=== PATIENT | female | born 1975 | race Two or more races ===

== ENCOUNTER 2022-02-26 00:39 | Inpatient (IN) | payer OTHER ==
[~2022-02-26] VITALS: Ht 157.5 cm; Wt 67.6 kg
--- NOTE | 2022-02-26 07:30 | NUR ---
RN OPENING NOTES RECEIVED PATIENT VIA [facility] AT 0900 AM WITH [address] [facility]. PATIENT IS ALERT AND ORIENTED TIMES 4. NO PAIN NOTED NO DISTRESS NOTED. NO SOB NOTED. ALL THE BELONGINGS ACCOUNTED AND SIGNED FOR. RIGHT LOWER EXTREMITY CELLULITIS NOTED. PICTURE TAKEN , IN THE CHART. ABLE TO AMBULATE. IV ACCESS AT RIGHT AC PAULA 20. AND DAUGHTER AT BED SIDE. ALL NEEDS ATTENDED. ALL SAFETY IN PLACE. BED LOCKED IN THE LOWEST POSITION. CALL LIGHT AND TABLE IN EASY REACH. WILL CONTINUE TO MONITOR.
[2022-02-26 09:10] VITALS: BP 166/97
[2022-02-26] MEDS ORDERED: LISI20TA30 PO (09:18)
[2022-02-26] MEDS ORDERED: OMEP20CA15 PO (09:18)
[2022-02-26] MEDS ORDERED: HYDROCODONE/APAP 5/325MG TABLET PO PRN (11:00)
[2022-02-26] MEDS ORDERED: MAGNESIUM HYDROXIDE 30 ML UDC PO PRN (11:00)
[2022-02-26] MEDS ORDERED: VANCOMYCIN HCL 1.25 GM in IV D5W 260 ML IV ONE (11:00)
[2022-02-26] MEDS ORDERED: ONDANSETRON HCL/PF 4 MG/2 ML VIAL IVP PRN (11:00)
[2022-02-26] MEDS ORDERED: MAG HYDROX/AL HYDROX/SIMETH 30 ML UDC PO PRN (11:00)
[2022-02-26] MEDS: LISINOPRIL (20MG) 20 MG TABLET PO SCH (11:04)
[2022-02-26] MEDS: ENOXAPARIN SODIUM 40 MG/0.4 ML DISP.SYRIN SQ SCH (11:23)
[2022-02-26 15:54] VITALS: BP 126/67
--- NOTE | 2022-02-26 19:30 | NUR ---
RN CLOSING NOTES PATIENT RESTING ON BED. PATIENT IS ALERT AND ORIENTED TIMES 4. NO PAIN NOTED NO DISTRESS NOTED. NO SOB NOTED. RIGHT LOWER EXTREMITY CELLULITIS NOTED. ABLE TO AMBULATE. IV ACCESS AT RIGHT AC PAULA 20 INTACT AND PATENT. DAUGHTER AT BED SIDE. ALL NEEDS ATTENDED. ALL SAFETY MEASURES IN PLACE. BED LOCKED IN THE LOWEST POSITION. CALL LIGHT AND TABLE IN EASY REACH.ALL DUE MEDS GIVEN ORDERED. WILL ENDORSE FOR KENDELL..
--- NOTE | 2022-02-26 19:35 | NUR ---
RN OPENING NOTES PATIENT RESTING ON BED. PATIENT IS ALERT AND ORIENTED TIMES 4. NO PAIN NOTED NO DISTRESS NOTED. NO SOB NOTED. RIGHT LOWER EXTREMITY CELLULITIS NOTED. ABLE TO AMBULATE. IV ACCESS AT RIGHT AC PAULA 20 INTACT AND PATENT. DAUGHTER AT BED SIDE. ALL NEEDS ATTENDED. ALL SAFETY MEASURES IN PLACE. BED LOCKED IN THE LOWEST POSITION. CALL LIGHT AND TABLE IN EASY REACH.
[2022-02-26 20:00] VITALS: BP 129/94
[2022-02-26] MEDS: VANCOMYCIN 0.75 GM in IV D5W 250 ML IV SCH (20:53)
[2022-02-27] MEDS: VANCOMYCIN 0.75 GM in IV D5W 250 ML IV SCH ×3 (05:26→21:13)
--- NOTE | 2022-02-27 06:46 | NUR ---
RN CLOSING NOTES PATIENT RESTING ON BED. PATIENT IS ALERT AND ORIENTED TIMES 4. NO PAIN NOTED NO DISTRESS NOTED. NO SOB NOTED. RIGHT LOWER EXTREMITY CELLULITIS NOTED. ABLE TO AMBULATE. IV ACCESS AT RIGHT AC PAULA 20 INTACT AND PATENT RUNNING VANCO AT THIS TIME NO NOTED REDNESS OR REACTION WHEN DOSES ON VANCO GIVEN THROUGHOUT THE SHIFT.ALL NEEDS ATTENDED. ALL SAFETY MEASURES IN PLACE. BED LOCKED IN THE LOWEST POSITION. CALL LIGHT AND TABLE IN EASY REACH. WILL ENDORSE KENDELL TO DAY SHIFT NURSE,.
[2022-02-27 06:59] LABS: BASOPHILS % (AUTO) 0.5 % (0.0-2.0); EOSINOPHILS % (AUTO) 5.2 % (0.0-6.0); HEMATOCRIT 34 % (33-45); HEMOGLOBIN 11.1 g/dL (11.5-14.8); LYMPHOCYTES # (AUTO) 0.6 K/uL (0.8-4.8); MEAN CORPUSCULAR HGB CONC 33 g/dl (31.0-36.0); MEAN CORPUSCULAR VOLUME 84 fL (82-100); MONOCYTES # (AUTO) 0.5 K/uL (0.1-1.30); MONOCYTES % (AUTO) 10.2 % (2.0-12.0); NEUTROPHILS # (AUTO) 3.5 K/uL (1.8-8.9); NEUTROPHILS % (AUTO) 71.1 % (43.0-81.0); PLATELET COUNT (AUTO) 288 K/uL (150-450); RED BLOOD CELL COUNT(AUTO) 4.02 MIL/uL (4.0-5.2); WHITE BLOOD COUNT (AUTO) 4.9 K/uL (4.3-11.0)
[2022-02-27 07:24] LABS: CALCIUM, SERUM 8.7 mg/dL (8.5-10.1); CREATININE 0.5 mg/dL (0.6-1.3); MAGNESIUM 1.8 mg/dL (1.8-2.4); PHOSPHORUS 3.9 mg/dL (2.5-4.9); POTASSIUM 3.2 mmol/L (3.5-5.1)
[2022-02-27 07:36] LABS: THYROID STIMULATING HORMONE 2.498 uIU/mL (0.358-3.74)
[2022-02-27 08:00] VITALS: BP 136/94
--- NOTE | 2022-02-27 08:07 | NUR ---
MS RN OPENING NOTE Patient in bed, awake. A/O x 4, able to make needs known. On room air, breathing evenly and unlabored. No SOB or s/s of distress noted. IV access on RAC #20 SL, intact and patent. Patient denies any pain or discomfort at this time. Safety precautions in place: bed in low, locked position; siderails up x 2; call light within reach. Will continue to monitor.
[2022-02-27] MEDS: LISINOPRIL (20MG) 20 MG TABLET PO SCH (09:02)
[2022-02-27] MEDS: PANTOPRAZOLE 40 MG TABLET.DR PO SCH (09:02)
[2022-02-27] MEDS: ENOXAPARIN SODIUM 40 MG/0.4 ML DISP.SYRIN SQ SCH (09:04)
[2022-02-27] MEDS ORDERED: POTASSIUM CHLORIDE 20 MEQ TAB.PRT.SR PO ONE (10:00)
--- NOTE | 2022-02-27 10:30 | NUR ---
RN NOTE Urine specimen collected and sent to lab.
--- NOTE | 2022-02-27 14:02 | NUR ---
RN NOTE Patient's IV access on RAC got infiltrated. IV removed, warm compress applied. Re-inserted IV on LFA #22, flushes well.
[2022-02-27] MEDS: ACETAMINOPHEN 325 MG TABLET PO PRN ×2 (15:51→21:52)
[2022-02-27 16:00] VITALS: BP 156/93
--- NOTE | 2022-02-27 18:56 | NUR ---
MS RN CLOSING NOTE Patient in bed, resting. A/O x 4, able to make needs known. Stable on room air, breathing evenly and unlabored. No SOB or s/s of distress noted. IV access on LFA #22 SL, intact and patent. All needs attended to. Due meds given. Safety precautions in place: bed in low, locked position; siderails up x 2; call light within reach. Will endorse to night court magistrate nurse for KENDELL.
--- NOTE | 2022-02-27 19:40 | NUR ---
MS/RN OPENING NOTE RECEIVED PATIENT RESTING IN BED. FAMILY AT BEDSIDE. PATIENT IS ALERT AND ORIENTED X 4. ABLE TO MAKE NEEDS KNOWN. DENIES PAIN AT THIS TIME. CONTINUES ON ROOM AIR WITH NO S/SX OF RESPIRATORY DISTRESS NOTED. IV ACCESS TO LEFT FOREARM #22G INTACT, PATENT AND SALINE LOCKED. CONTINUES ON IV ABX. PATIENT IS AMBULATORY WITH STEADY GAIT. CALL LIGHT WITHIN REACH. ASPIRATION, FALL AND SAFETY PRECAUTIONS MAINTAINED. ALL NEEDS ATTENDED TO AT THIS TIME.
[2022-02-27 20:00] VITALS: BP 147/90
--- NOTE | 2022-02-27 21:52 | NUR ---
MS/RN NOTE PATIENT WITH C/O HEADACHE - PAIN LEVEL 3/10. ADMINISTERED PRN TYLENOL PER MD ORDERS.
[2022-02-28] MEDS: VANCOMYCIN 0.75 GM in IV D5W 250 ML IV SCH ×2 (05:16→12:07)
--- NOTE | 2022-02-28 06:40 | NUR ---
MS/RN CLOSING NOTE PATIENT CURRENTLY SLEEPING IN BED. ALERT AND ORIENTED X 4. ABLE TO MAKE NEEDS KNOWN. DENIES PAIN AT THIS TIME. CONTINUES ON ROOM AIR WITH NO S/SX OF RESPIRATORY DISTRESS NOTED. IV ACCESS TO LEFT FOREARM #22G INTACT, PATENT AND SALINE LOCKED. CONTINUES ON IV ABX. PATIENT IS AMBULATORY WITH STEADY GAIT. CALL LIGHT WITHIN REACH. ASPIRATION, FALL AND SAFETY PRECAUTIONS MAINTAINED. WILL ENDORSE PLAN OF CARE TO ONCOMING SHIFT RN.
[2022-02-28 07:02] LABS: CALCIUM, SERUM 8.5 mg/dL (8.5-10.1); CREATININE 0.5 mg/dL (0.6-1.3); POTASSIUM 3.1 mmol/L (3.5-5.1)
--- NOTE | 2022-02-28 07:10 | NUR ---
MS RN OPENING NOTES: RECEIVED PATIENT IN BED AWAKE. ALERT AND ORIENTED X 4 AND ABLE TO VERBALIZED NEEDS. NO SOB OR CARDIAC DISTRESS NOTED,ON ROOM AIR AND TOLERATING WELL. DENIES PAIN AT THIS TIME. WITH IV ACCESS ON LFA GAUGE 22 PATENT, INTACT AND SALINE LOCKED. SAFETY PRECAUTIONS MAINTAINED: BED LOCKED AND IN LOWEST POSITION, SIDE RAILS UP X 2. CALL LIGHT IN EASY REACH FOR HELP. KEPT RESTED AND COMFORTABLE.
[2022-02-28] MEDS: PANTOPRAZOLE 40 MG TABLET.DR PO SCH (07:18)
[2022-02-28 08:00] VITALS: BP 153/94
[2022-02-28 08:22] VITALS: BP 153/94
[2022-02-28] MEDS: LISINOPRIL (20MG) 20 MG TABLET PO SCH (08:22)
[2022-02-28] MEDS: ENOXAPARIN SODIUM 40 MG/0.4 ML DISP.SYRIN SQ SCH (08:28)
[2022-02-28] MEDS ORDERED: POTASSIUM CHLORIDE 20 MEQ TAB.PRT.SR PO SCH (10:00)
--- NOTE | 2022-02-28 15:50 | NUR ---
RN NOTES: PATIENT COMPLAINING PAIN/DISCOMFORT ON HER IV ACCESS ON LAC.
--- NOTE | 2022-02-28 16:00 | NUR ---
RN NOTES: ICE PACKED PLACED ON LAC.
--- NOTE | 2022-02-28 17:00 | NUR ---
RN NOTES: ATTEMPTING TO REINSERT IV ACCESS TO PATIENT, UNSUCCESSFUL. INFORMED DR ARMSTRONG THAT NURSES UNABLE TO REINSERT IV ACCESS, WAITING FOR RESPONSE.
--- NOTE | 2022-02-28 18:30 | NUR ---
RN NOTES: INSERTED IV ACCESS OON RAC G22 PATENT AND INTACT BY RN VINICIO.
--- NOTE | 2022-02-28 18:44 | NUR ---
DISCHARGED RN NOTES: PATIENT DC HOME WITH HOME HEALTH. PATIENT ALERT AND ORIENTED X 4 AND ABLE TO VERBALIZED NEEDS. NO SOB OR CARDIAC DISTRESS NOTED. LEFT THE IV ACCESS ON RAC G22 PATENT AND INTACT, SALINE LOCKED. PT WILL BE DC WITH HOME HEALTH AND WILL CONTINUE TO HAVE VANCO IV 1.25 Q 12HRS X4DAYS. EXPLAINED TO THE PATIENT THAT SHE WILL BE DC WITH ,AND WILL CONTINUE IV ANTIBIOTICS X 4DAYS, DISCHARGE PACKET AND RADIOLOGY CD ([facility]) GIVEN AND VERBALIZED UNDERSTANDING. ALL BELONGINGS CARRIED AND PT SIGNED THE FORM. ABDOMEN SOFT AND NOT DISTENDED. SKIN IS INTACT. PATIENT PICKED UP BY . PATIENT LEFT THE UNIT STABLE. VS WNL. REMOVED IDENTIFICATION BAND.
== END 2022-02-28 18:42 | disposition home health service (06) | DRG 383 ==
LOC: MED 08:55
DX: L03.115 Cellulitis of right lower limb (principal); I10 Essential (primary) hypertension; K21.9 Gastro-esophageal reflux disease without esophagitis; Z79.899 Other long term (current) drug therapy
CPT/HCPCS: 36415; 80048-TC; 80061-TC; 80202-TC; 83735-TC; 84100-TC; 84443-TC; 84703-TC; 85025-TC; 87081-TC; G0378; J1650; J3370; J7050; J7060